=== PATIENT | female | born 1970 | race Caucasian/White ===

== ENCOUNTER 2019-09-11 08:23 | Outpatient (CLI) | payer OTHER ==
[~2019-09-11 08:23] MED LIST: OMEP20TA62 PO
[2019-09-11] MEDS ORDERED: [UNRECOGNIZED DRUG - OTHER] PO (09:15)
[2019-09-11] MEDS ORDERED: vitamin D3 (09:15)
[2019-09-11] MEDS ORDERED: [UNRECOGNIZED DRUG - OTHER] (09:15)
[2019-09-11] MEDS ORDERED: [UNRECOGNIZED DRUG - OTHER] PO (09:15)
[2019-09-11] MEDS ORDERED: hydroxyzine PO (09:15)
[2019-09-11] MEDS ORDERED: [UNRECOGNIZED DRUG - OTHER] PO (09:15)
[2019-09-11] MEDS ORDERED: biotin PO (09:15)
[2019-09-11] MEDS ORDERED: B complex PO (09:15)
[2019-09-11] MEDS ORDERED: iodine PO (09:15)
== END 2019-09-11 23:59 | disposition home or self-care (01) ==
LOC: STAR 08:23
PROVIDERS: ATTEND Surgery
DX: Z02.9 Encounter for administrative examinations, unspecified (principal)

== ENCOUNTER 2019-09-17 06:11 | Day surgery (SDC) | payer OTHER ==
[~2019-09-17] VITALS: Ht 160 cm; Wt 71.0 kg
[~2019-09-17 06:11] MED LIST changes: +B complex PO; +[UNRECOGNIZED DRUG - OTHER]; +[UNRECOGNIZED DRUG - OTHER] PO; +[UNRECOGNIZED DRUG - OTHER] PO; +[UNRECOGNIZED DRUG - OTHER] PO; +biotin PO; +hydroxyzine PO; +iodine PO; +vitamin D3
[2019-09-17] MEDS ORDERED: BUPIVACAINE/PF 0.5% ONE (06:12)
[2019-09-17] MEDS ORDERED: EPINEPHRINE 1 MG/ML, 1ML ONE (06:12)
[2019-09-17] MEDS ORDERED: MIDAZOLAM 1 MG/ML, 2ML ONE (06:44)
[2019-09-17] MEDS ORDERED: FENTANYL PF 100 MCG/2ML ONE ×2 (06:44→07:36)
[2019-09-17 06:49] VITALS: BP 109/54
[2019-09-17] MEDS ORDERED: LACTATED RINGERS 1,000 ML IV SCH (06:51)
[2019-09-17] MEDS ORDERED: DEXAMETHASONE 4 MG/ML, 1ML ONE (06:57)
[2019-09-17] MEDS ORDERED: ONDANSETRON 2MG/ML, 2ML ONE (06:57)
[2019-09-17] MEDS ORDERED: PROPOFOL 10 MG/ML, 20ML ONE (06:57)
[2019-09-17] MEDS ORDERED: CEFAZOLIN 1,000 MG ONE (06:57)
[2019-09-17] MEDS ORDERED: SUGAMMADEX 200 MG/2 ML IVPush ONE (06:57)
[2019-09-17] MEDS ORDERED: ROCURONIUM 10 MG/ML,10ML ONE (06:57)
[2019-09-17] MEDS ORDERED: ACETAMINOPHEN 500 MG TABLET PO ONE (07:00)
[2019-09-17] MEDS ORDERED: LABETALOL 5MG/ML, 20ML IV PRN (07:30)
[2019-09-17] MEDS ORDERED: METOCLOPRAMIDE 5 MG/ML, 2ML IV PRN (07:30)
[2019-09-17] MEDS ORDERED: FENTANYL PF 100 MCG/2ML IV PRN (07:30)
[2019-09-17] MEDS ORDERED: hydrALAzine 20 MG/ML, 1ML IV PRN (07:30)
[2019-09-17] MEDS ORDERED: ONDANSETRON 2MG/ML, 2ML IV PRN (07:30)
[2019-09-17] MEDS ORDERED: LORazepam 2 MG/ML, 1ML IVPush PRN (07:30)
[2019-09-17] MEDS ORDERED: OXYcodone 5 MG/5 ML ORAL.SOL UDC PO PRN (07:30)
[2019-09-17] MEDS ORDERED: MEPERIDINE/PF 25MG/ML,1ML IVPush PRN (07:30)
[2019-09-17] MEDS ORDERED: HYDROmorphone 2 MG/ML, 1ML IVPush PRN (07:30)
[2019-09-17] MEDS ORDERED: MEPERIDINE/PF 25MG/ML,1ML ONE (07:36)
[2019-09-17] MEDS ORDERED: OXYcodone 5 MG/5 ML ORAL.SOL UDC ONE (07:36)
[2019-09-17] MEDS ORDERED: LORazepam 2 MG/ML, 1ML ONE (07:36)
== END 2019-09-17 10:15 | disposition home or self-care (01) ==
LOC: OUT 06:11
PROVIDERS: ATTEND Surgery
DX: K82.8 Other specified diseases of gallbladder (principal); K81.1 Chronic cholecystitis; Z79.899 Other long term (current) drug therapy; Z87.891 Personal history of nicotine dependence; Z98.890 Other specified postprocedural states; Z83.3 Family history of diabetes mellitus; Z82.49 Family history of ischemic heart disease and other diseases of the circulatory system
CPT/HCPCS: 47562; 88304; J0171; J0690; J1100; J2060; J2175; J2250; J2405; J2704; J3010; J7120